=== PATIENT | female | born 1970 | race Caucasian/White ===

== ENCOUNTER 2016-11-16 22:19 | Observation (INO) | payer OTHER ==
[2016-11-16] MEDS ORDERED: LORazepam 2 MG/ML SYRINGE IV STA (22:49)
[2016-11-16] MEDS ORDERED: ASPIRIN 81 MG CHEW PO STA (22:50)
[2016-11-16] MEDS ORDERED: NITROGLYCERIN OINT 1 INCH/GM PACKET TOPICAL STA (22:50)
--- NOTE | 2016-11-16 22:53 | ED ---
General Adult HPI - General Chief complaint: Arrhythmia/Palpitations Stated complaint: Chest Pain Time Seen by Provider: 11/16/16 22:25 Source: patient, family, RN notes reviewed Mode of arrival: ambulatory Limitations: no limitations - History of Present Illness Initial comments: this is a 46-year-old female presents emergency Department complaining of chest discomfort on and off for the last 3 days patient states that time she's had chest heaviness at other time she's had shortness of breath. Patient also states she's had some left-sided jaw pain right-sided neck pain as well as breaking out in a cold sweat throughout the last 3 days. Patient states he symptoms do not necessarily coincide with each other. Patient states they just seem to occur randomly. Patient denies any recent fever chills or cough. Patient states she just came home from [place] one week ago and in that timeframe her has had a heart attack in a stent placed so she is under quite a bit of stress. Patient denies any abdominal pain patient denies nausea vomiting diarrhea. Patient denies any shortness of breath or chest pain currently. Patient denies any headache patient denies numbness weakness patient states she has had anxiety attacks in the past but none of which seem to be similar to this. - Related Data Home Medications Medication Instructions Recorded Confirmed No Known Home Medications [No 08/05/14 11/16/16 Known Home Medications] Allergies Allergy/AdvReac Type Severity Reaction Status Date / Time No Known Allergies Allergy Verified 11/16/16 22:25 Review of Systems ROS Statement: Those systems with pertinent positive or pertinent negative responses have been documented in the HPI. ROS Other: All systems not noted in ROS Statement are negative. Past Medical History Past Medical History: No Reported History History of Any Multi-Drug Resistant Organisms: None Reported Past Surgical History: No Surgical Hx Reported Past Psychological History: No Psychological Hx Reported Smoking Status: Never smoker Past Alcohol Use History: Rare Past Drug Use History: None Reported General Exam - General Exam Comments Initial Comments: GENERAL: Patient is well-developed and well-nourished. Patient is nontoxic and well- hydrated and is in no acute distress. ENT: Neck is soft and supple. No significant lymphadenopathy is noted. Oropharynx is clear. Moist mucous membranes. Neck has full range of motion without eliciting any pain. EYES: The sclera were anicteric and conjunctiva were pink and moist. Extraocular movements were intact and pupils were equal round and reactive to light. Eyelids were unremarkable. PULMONARY: Unlabored respirations. Good breath sounds bilaterally. No audible rales rhonchi or wheezing was noted. CARDIOVASCULAR: There is a regular rate and rhythm without any murmurs gallops or rubs. ABDOMEN: Soft and nontender with normal bowel sounds. No palpable organomegaly was noted. There is no palpable pulsatile mass. SKIN: Skin is clear with no lesions or rashes and otherwise unremarkable. NEUROLOGIC: Patient is alert and oriented x3. Cranial nerves II through XII are grossly intact. Motor and sensory are also intact. Normal speech, volume and content. Symmetrical smile. MUSCULOSKELETAL: Normal extremities with adequate strength and full range of motion. No lower extremity swelling or edema. No calf tenderness. LYMPHATICS: No significant lymphadenopathy is noted PSYCHIATRIC: Normal psychiatric evaluation. Normal interpersonal interactions appears functionally intact in deals appropriately with others. No signs of depression. Mild anxiety. Limitations: no limitations Course Vital Signs 11/16/16 11/16/16 11/16/16 22:23 23:08 23:54 Temperature 98.3 F Pulse Rate 79 73 80 Respiratory 18 16 18 Rate Blood Pressure 180/81 125/71 125/71 O2 Sat by Pulse 100 99 94 L Oximetry Medical Decision Making - Medical Decision Making EKG shows normal sinus rhythm at 66 bpm MT interval 146 dresses 92 QT interval 410 QTC is 429. Patient's EKG shows no ST segment elevation or depression or T- wave abdomen is noted. Patient's chest x-ray shows no acute abnormality. Patient's clinical symptoms the patient experienced indicated that this was an unstable angina/started the patient on heparin. Admitted the patient I spoke with Dr. Goldberg he agreed to accept the admission admitted the patient I wrote admitting orders and consult cardiology continue the Nitropaste aspirin and heparin on the floor. - Lab Data Result diagrams: 11/16/16 23:20 11/16/16 23:20 Lab Results 11/16/16 11/16/16 11/16/16 Range/Units 23:20 23:20 23:20 WBC 6.9 (3.8-10.6) k/uL RBC 4.34 (3.80-5.40) m/uL Hgb 13.7 (11.4-16.0) gm/dL Hct 38.6 (34.0-46.0) % MCV 88.9 (80.0-100.0) fL MCH 31.7 (25.0-35.0) pg MCHC 35.6 (31.0-37.0) g/dL RDW 12.5 (11.5-15.5) % Plt Count 177 (150-450) k/uL Neutrophils % 61 % Lymphocytes % 32 % Monocytes % 3 % Eosinophils % 2 % Basophils % 0 % Neutrophils # 4.2 (1.3-7.7) k/uL Lymphocytes # 2.2 (1.0-4.8) k/uL Monocytes # 0.2 (0-1.0) k/uL Eosinophils # 0.1 (0-0.7) k/uL Basophils # 0.0 (0-0.2) k/uL PT 11.1 (9.0-12.0) sec INR 1.1 (<1.1) APTT 26.6 (22.0-30.0) sec D-Dimer <0.17 (<0.60) mg/L FEU Sodium 141 (137-145) mmol/L Potassium 4.0 (3.5-5.1) mmol/L Chloride 103 (98-107) mmol/L Carbon Dioxide 27 (22-30) mmol/L Anion Gap 11 mmol/L BUN 18 H (7-17) mg/dL Creatinine 0.70 (0.52-1.04) mg/dL Est GFR (MDRD) Af Amer >60 (>60 ml/min/1.73 sqM) Est GFR (MDRD) Non-Af >60 (>60 ml/min/1.73 sqM) Glucose 100 H (74-99) mg/dL Calcium 9.7 (8.4-10.2) mg/dL Magnesium 2.0 (1.6-2.3) mg/dL Total Bilirubin 0.5 (0.2-1.3) mg/dL AST 21 (14-36) U/L ALT 33 (9-52) U/L Alkaline Phosphatase 65 (38-126) U/L Total Creatine Kinase (30-135) U/L Total Protein 7.4 (6.3-8.2) g/dL Albumin 4.5 (3.5-5.0) g/dL 11/16/16 Range/Units 23:20 WBC (3.8-10.6) k/uL RBC (3.80-5.40) m/uL Hgb (11.4-16.0) gm/dL Hct (34.0-46.0) % MCV (80.0-100.0) fL MCH (25.0-35.0) pg MCHC (31.0-37.0) g/dL RDW (11.5-15.5) % Plt Count (150-450) k/uL Neutrophils % % Lymphocytes % % Monocytes % % Eosinophils % % Basophils % % Neutrophils # (1.3-7.7) k/uL Lymphocytes # (1.0-4.8) k/uL Monocytes # (0-1.0) k/uL Eosinophils # (0-0.7) k/uL Basophils # (0-0.2) k/uL PT (9.0-12.0) sec INR (<1.1) APTT (22.0-30.0) sec D-Dimer (<0.60) mg/L FEU Sodium (137-145) mmol/L Potassium (3.5-5.1) mmol/L Chloride (98-107) mmol/L Carbon Dioxide (22-30) mmol/L Anion Gap mmol/L BUN (7-17) mg/dL Creatinine (0.52-1.04) mg/dL Est GFR (MDRD) Af Amer (>60 ml/min/1.73 sqM) Est GFR (MDRD) Non-Af (>60 ml/min/1.73 sqM) Glucose (74-99) mg/dL Calcium (8.4-10.2) mg/dL Magnesium (1.6-2.3) mg/dL Total Bilirubin (0.2-1.3) mg/dL AST (14-36) U/L ALT (9-52) U/L Alkaline Phosphatase (38-126) U/L Total Creatine Kinase 49 (30-135) U/L Total Protein (6.3-8.2) g/dL Albumin (3.5-5.0) g/dL Critical Care Time Critical Care Time: Yes Total Critical Care Time: 35 Disposition Clinical Impression: Unstable angina Disposition: ADMITTED IP TO THIS [facility] Time of Disposition: 00:25
[2016-11-16 23:39] LABS: Basophils % (A) 0 %; CH 32.4; CHCM 36.6; Eosinophils # (A) 0.1 k/uL (0-0.7); Eosinophils % (A) 2 %; HCT 38.6 % (34.0-46.0); HDW 2.94; HGB 13.7 gm/dL (11.4-16.0); Luc # (Auto) 0.15; Luc % (Auto) 2; Lymphocytes # (A) 2.2 k/uL (1.0-4.8); Lymphocytes % (A) 32 %; MCH 31.7 pg (25.0-35.0); MCHC 35.6 g/dL (31.0-37.0); MCV 88.9 fL (80.0-100.0); Mean Platelet Volume 7.6; Monocytes # (A) 0.2 k/uL (0-1.0); Monocytes % (A) 3 %; Neutrophils # (A) 4.2 k/uL (1.3-7.7); Neutrophils % (A) 61 %; RBC 4.34 m/uL (3.80-5.40); RDW 12.5 % (11.5-15.5); WBC 6.9 k/uL (3.8-10.6); WBC (Perox) 6.88
[2016-11-16 23:49] LABS: ALT 33 U/L (9-52); AST 21 U/L (14-36); Alkaline Phosphatase 65 U/L (38-126); Anion Gap 11 mmol/L; Blood Urea Nitrogen 18 mg/dL (7-17); Calcium 9.7 mg/dL (8.4-10.2); Carbon Dioxide 27 mmol/L (22-30); Chloride 103 mmol/L (98-107); Glucose 100 mg/dL (74-99); Non-African American GFR(MDRD) >60 (>60 ml/min/1.73 sqM); Sodium 141 mmol/L (137-145); Total Bilirubin 0.5 mg/dL (0.2-1.3); Total Protein 7.4 g/dL (6.3-8.2)
[2016-11-16 23:53] LABS: INR 1.1 (<1.1); Partial Thromboplastin Time 26.6 sec (22.0-30.0); Prothrombin Time 11.1 sec (9.0-12.0)
[2016-11-17 00:03] LABS: Creatine Kinase 49 U/L (30-135)
[2016-11-17 00:14] LABS: Creatine Kinase MB <0.2 ng/mL (0.0-2.4); Troponin I <0.012 ng/mL (0.000-0.034)
--- NOTE | 2016-11-17 00:15 | XR ---
EXAM: XR Chest, 2 Views. CLINICAL HISTORY: Reason: Chest Pain TECHNIQUE: Frontal and lateral views of the chest. COMPARISON: 08/05/14 FINDINGS: Lungs: Unremarkable. No consolidation. Pleural space: Unremarkable. No pneumothorax. Heart: Unremarkable. No cardiomegaly. Mediastinum: Unremarkable. Bones/joints: Unremarkable. IMPRESSION: No acute findings or substantial change
[2016-11-17] MEDS ORDERED: HEPARIN SODIUM,PORCINE 5,000 UNIT/ML 1 ML VIAL IV ONE (00:23)
[2016-11-17] MEDS ORDERED: HEPARIN SODIUM,PORCINE/D5W PMX 25,000 UNIT in DEXTROSE/WATER 1 500ML.BAG IV SCH (00:30)
[2016-11-17] MEDS ORDERED: MORPHINE SULFATE 2 MG/ML SYRINGE IVP PRN (01:55)
[2016-11-17] MEDS ORDERED: NITROGLYCERIN SL TABS 0.4 MG TAB SUBLINGUAL PRN (01:55)
[2016-11-17] MEDS ORDERED: SODIUM CHLORIDE 0.9% 1,000 ML IV SCH (02:00)
[2016-11-17 03:00] VITALS: BMI 27.1
[2016-11-17 07:11] LABS: Creatine Kinase 48 U/L (30-135)
[2016-11-17 07:24] LABS: Creatine Kinase MB <0.2 ng/mL (0.0-2.4); Troponin I <0.012 ng/mL (0.000-0.034)
[2016-11-17 08:01] VITALS: RESP 16; TEMP 97.8
--- NOTE | 2016-11-17 08:26 | P.CRDCN ---
History of Present Illness Consult reason: chest pain History of present illness: 46-year-old female who presented to the hospital with recurrent left-sided chest discomfort as well as discomfort in the left arm The patient has been complaining of a fluttering sensation in the chest. Subsequently she started developing discomfort in the left side of the chest and felt tight and in the left arm she may also felt some discomfort in the nape of the neck She has been short of breath with activities of daily living including carrying clothes to the washing machine No loss of consciousness but she does get dizzy off and on Review of systems: No fever chills or rigors, no cough, phlegm or expectoration , no nausea, vomiting or diarrhea, no hematuria, dysuria, no musculoskeletal complaints, no strokes or seizures, no skin lesions. No medications at this time NO KNOWN DRUG ALLERGIES Never smoker No alcohol use Past history none. She denies any diabetes hypertension she does not know her lipid panel Family history: Her father had his heart attack in his 60s and he also has a defibrillator because he had a cardiac arrest On examination Her blood pressures 105/59 mmHg pulse rate in the 80s afebrile 97.8F No JVD no thyromegaly no carotid bruits Heart sounds S1 and S2 are normal no murmurs no gallops Breath sounds are normal no rhonchi no crackles Extremities are warm no edema Abdomen is soft nontender 12-lead ECG shows sinus rhythm with early repolarization abnormality inferior laterally no other ST segment abnormalities. Subsequent twelve-lead ECG shows no significant changes Labs are reviewed. Hemoglobin is normal d-dimer is normal electrolytes are normal kidney function normal, liver function normal to cardiac enzymes are completely normal, third one is pending Impression Recurrent chest discomfort radiating to the left arm Recurrent fluttering and palpitations in the chest Recurrent dizzy spells Shortness of breath on exertion No current evidence for an acute myocardial infarction Lipid panel pending Family history of CAD and cardiac arrest Suggest Stop Nitropaste, stop IV heparin. Ambulate in the hallways. If she has any chest discomfort a stat twelve-lead ECG and the nurse will call me At 12 noon, troponins be drawn and if this is normal she should be able to go home today May go home thereafter and follow-up with me as an outpatient for outpatient workup Past Medical History Past Medical History: No Reported History Additional Past Medical History / Comment(s): psoriasis History of Any Multi-Drug Resistant Organisms: None Reported Past Surgical History: No Surgical Hx Reported Additional Past Anesthesia/Blood Transfusion Reaction / Comment(s): no prev anesthesia Past Psychological History: Anxiety Smoking Status: Never smoker Past Alcohol Use History: Rare Past Drug Use History: None Reported - Past Family History Father Additional Family Medical History / Comment(s): cardiac arrest with open heart and valve replaced at 65. still living currently Medications and Allergies Home Medications Medication Instructions Recorded Confirmed Type No Known Home Medications [No 08/05/14 11/16/16 History Known Home Medications] Allergies Allergy/AdvReac Type Severity Reaction Status Date / Time No Known Allergies Allergy Verified 11/16/16 22:25 Physical Exam Vitals: Vital Signs Temp Pulse Pulse Pulse Resp BP BP 11/17/16 08:00 97.8 F 80 16 105/59 11/17/16 03:41 97.7 F 65 18 116/62 11/17/16 03:13 74 16 11/17/16 02:05 77 16 108/57 Pulse Ox 11/17/16 08:00 95 11/17/16 03:41 96 11/17/16 03:13 11/17/16 02:05 92 L Intake and Output 11/16/16 11/17/16 11/17/16 22:59 06:59 14:59 Other: Voiding Method Toilet # Voids 2 Weight 67.132 kg Results 11/16/16 23:20 11/16/16 23:20 Cardiac Enzymes 11/17/16 Range/Units 06:16 CK-MB (CK-2) <0.2 (0.0-2.4) ng/mL Troponin I <0.012 (0.000-0.034) ng/mL Coagulation 11/17/16 Range/Units 06:16 APTT 64.4 H (22.0-30.0) sec Current Medications Generic Name Dose Route Start Last Admin Trade Name Freq PRN Reason Stop Dose Admin Aspirin 325 mg 11/18/16 09:00 Aspirin PO DAILY YOBANI Heparin Sodium/Dextrose 25,000 500 mls @ 16.11 mls/hr 11/17/16 00:30 00:31 unit/ IV Solution IV 12 units/kg/hr .Q24H YOBANI 16.11 mls/hr Protocol Administration 12 UNITS/KG/HR Sodium Chloride 1,000 mls @ 100 mls/hr 11/17/16 02:00 Saline 0.9% IV .Q10H YOBANI Morphine Sulfate 2 mg 11/17/16 01:55 Morphine Sulfate (Inj) IVP Q5M PRN Chest Pain Nitroglycerin 0.4 mg 11/17/16 01:55 Nitrostat SUBLINGUAL Q5M PRN Chest Pain Intake and Output 11/16/16 11/17/16 11/17/16 22:59 06:59 14:59 Other: Voiding Method Toilet # Voids 2 Weight 67.132 kg
[2016-11-17 11:41] LABS: Creatine Kinase 46 U/L (30-135)
[2016-11-17 11:55] LABS: Creatine Kinase MB <0.2 ng/mL (0.0-2.4); Troponin I <0.012 ng/mL (0.000-0.034)
[2016-11-17 12:21] VITALS: BP 107/55; PULSE 74
--- NOTE | 2016-11-17 12:48 | HP ---
DATE OF ADMISSION: 11/17/2016 CHIEF COMPLAINT: Chest pain. HISTORY OF PRESENT ILLNESS: This is a 46-year-old female who presented to the hospital with new onset chest pain. The patient said that she was on vacation where she had multiple neck pain and shoulder pain, but this morning she felt some chest tightness. She said that it is discomfort. No radiation to the left shoulder. Denied vomiting, but admitted nausea. Patient said that she had a father who of cardiac arrest at age 60, had stent this year. She felt overwhelmed and presented to the emergency department. Initial work-up with troponin and EKG showed normal findings but patient was started on heparin drip per ER physician and placed in observation for cardiac evaluation. Patient currently seems to be in no pain. Denying chest pain, shortness breath, nausea, vomiting, abdominal pain, dizziness, lightheadedness, or blurry vision. Thinks that is all related to missing her appointment with the chiropractor as she has been addicted to that. REVIEW OF SYSTEMS: All 14 systems reviewed and negative except as above. ALLERGIES: No known drug allergies. HOME MEDICATIONS: None. PAST MEDICAL AND SURGICAL HISTORY: Chronic back pain and neck pain and shoulder pain. SOCIAL HISTORY: No denied tobacco, alcohol or drug abuse. FAMILY HISTORY: Father with the cardiac arrest age 60. PHYSICAL EXAMINATION: VITAL SIGNS: Reviewed and stable. GENERAL: Stated age. No acute distress. HEENT: Atraumatic, normocephalic. PERRLA. LUNGS: Clear to auscultation bilaterally. HEART: Normal S1, S2. No murmur, rubs, or gallops. No lower extremity edema. ABDOMEN: Soft, no tenderness. Positive bowel sounds in all 4 quadrants. SKIN: No rash. PSYCH: Alert, and oriented x3. NEURO: Cranial nerves 2 through 12 are intact. Normal deep tendon reflexes and sensation. EKG showed normal sinus rhythm without acute changes. CBC normal. PT, PTT, INR normal. Troponin x2 normal. Chemistries showed normal findings entirely, LDL was 127, cholesterol is 204 and triglyceride 89, HDL of 59. ASSESSMENT AND PLAN: 1. Chest pain, noncardiac related. Patient was evaluated by Dr. Urias and he would like her to follow up with him in the office for stress echo on outpatient basis. The patient is happy with this plan and would like to go home today. The patient with no obvious symptoms. 2. Anxiety. To follow up outpatient with her primary care physician. 3. We will discharge patient today.
[2016-11-18] MEDS ORDERED: ASPIRIN 325 MG TAB PO SCH (09:00)
== END 2016-11-17 12:15 | disposition home or self-care (01) ==
LOC: EC 22:19 → 3SUR 11-17 01:58
PROVIDERS: ADMIT Internal Medicine; ATTEND Internal Medicine
DX: R07.89 Other chest pain (principal); Z82.41 Family history of sudden cardiac death; Z82.49 Family history of ischemic heart disease and other diseases of the circulatory system; R06.02 Shortness of breath
CPT/HCPCS: 99291 ×2; 96365 ×2; 96366 ×2; 96375 ×2; 96376 ×2; 36415; 93005; 85379; 84439; 80061; 80053; 84443; 82550 ×2; 82553 ×2; 83735; 84484 ×2; 85025; 85610; 85730 ×2; 71020; G0378; J2060; J1644 ×2

== ENCOUNTER 2021-06-30 21:07 | Emergency (ER) | payer BC ==
[2021-06-30 22:13] VITALS: RESP 18
[2021-06-30] MEDS ORDERED: SODIUM CHLORIDE 0.9% 1,000 ML IV STA (23:02)
--- NOTE | 2021-06-30 23:06 | ED ---
Chest Pain HPI - General Chief Complaint: Chest Pain Stated Complaint: Left arm pain, Nausea Time Seen by Provider: 06/30/21 22:28 Source: patient, RN notes reviewed, old records reviewed Mode of arrival: ambulatory Limitations: no limitations - History of Present Illness Initial Comments: This is a 42-year-old female presents today for evaluation. Patient has history of psychiatric and anxiety. Not homicidal or suicidal with no drug or alcohol abuse. States few days ago she had some jaw pain occasional chest pain with history of thyroid and gallbladder issues. Gallbladder thyroid issues are resolved patient has mild concern for heart secondary to the jaw pain and chest pain. No fevers no cough or congestion no travel history MD Complaint: chest pain -: days(s) Onset: during rest Pain Location: left chest Pain Radiation: LUE, jaw/teeth Severity: moderate Severity scale (1-10): 4 Quality: aching, heaviness Consistency: intermittent Improves With: nothing Worsens With: nothing Anginal Symptoms: sense of impending doom Other Symptoms: palpitations Treatments Prior to Arrival: none - Related Data Home Medications Medication Instructions Recorded Confirmed No Known Home Medications 08/05/14 11/17/16 Allergies Allergy/AdvReac Type Severity Reaction Status Date / Time No Known Allergies Allergy Verified 06/30/21 22:13 Review of Systems ROS Statement: Those systems with pertinent positive or pertinent negative responses have been documented in the HPI. ROS Other: All systems not noted in ROS Statement are negative. EKG Findings - EKG Comments: EKG Findings:: EKG is normal sinus rhythm 74 VA 142 QRS 84 QTc 437 Past Medical History Past Medical History: No Reported History Additional Past Medical History / Comment(s): psoriasis History of Any Multi-Drug Resistant Organisms: None Reported Past Surgical History: No Surgical Hx Reported Additional Past Anesthesia/Blood Transfusion Reaction / Comment(s): no prev anesthesia Past Psychological History: Anxiety Smoking Status: Never smoker Past Alcohol Use History: Rare Past Drug Use History: None Reported - Past Family History Father Additional Family Medical History / Comment(s): cardiac arrest with open heart and valve replaced at 65. still living currently General Exam Limitations: no limitations General appearance: alert, in no apparent distress Head exam: Present: atraumatic, normocephalic, normal inspection Eye exam: Present: normal appearance, PERRL, EOMI. Absent: scleral icterus, conjunctival injection, periorbital swelling ENT exam: Present: normal exam, mucous membranes moist Neck exam: Present: normal inspection. Absent: tenderness, meningismus, lymphadenopathy Respiratory exam: Present: normal lung sounds bilaterally. Absent: respiratory distress, wheezes, rales, rhonchi, stridor Cardiovascular Exam: Present: regular rate, normal rhythm, normal heart sounds. Absent: systolic murmur, diastolic murmur, rubs, gallop, clicks GI/Abdominal exam: Present: soft, normal bowel sounds. Absent: distended, tenderness, guarding, rebound, rigid Extremities exam: Present: normal inspection, full ROM, normal capillary refill. Absent: tenderness, pedal edema, joint swelling, calf tenderness Back exam: Present: normal inspection Neurological exam: Present: alert, oriented X3, CN II-XII intact Psychiatric exam: Present: normal affect, normal mood Skin exam: Present: warm, dry, intact, normal color. Absent: rash Course Vital Signs 06/30/21 07/01/21 22:09 02:14 Temperature 97.9 F 98.0 F Pulse Rate 76 79 Respiratory 18 18 Rate Blood Pressure 191/98 137/72 O2 Sat by Pulse 99 97 Oximetry - Reevaluation(s) Reevaluation #1: 07/01/21 04:48 Medical record is reviewed Reevaluation #2: 07/01/21 04:48 Patient symptoms are improved Reevaluation #3: 07/01/21 04:48 Patient informed results and questions answered Chest Pain MDM - MDM 50 female to the emergency department for evaluation of pain concern for heart which is normal here. Also was concerned for recurrent thyroid or gallbladder disease. All testing is negative patient can be discharged home Disposition Clinical Impression: Chest pain, Arm pain, Jaw pain Disposition: HOME SELF-CARE Condition: Good Instructions (If sedation given, give patient instructions): Chest Pain (ED), Arm Pain (ED) Is patient prescribed a controlled substance at d/c from ED?: No Referrals: Vesna Tracey DO [Primary Care Provider] - 1-2 days
[2021-06-30 23:33] LABS: Basophils % (A) 1 %; Eosinophils # (A) 0.1 k/uL (0-0.7); Eosinophils % (A) 2 %; HCT 38.1 % (34.0-46.0); HGB 13.7 gm/dL (11.4-16.0); Hyperchromasia Slight; Lymphocytes # (A) 2.2 k/uL (1.0-4.8); Lymphocytes % (A) 33 %; MCH 30.8 pg (25.0-35.0); MCV 85.6 fL (80.0-100.0); Mean Platelet Volume 8.4; Monocytes # (A) 0.3 k/uL (0-1.0); Monocytes % (A) 4 %; Neutrophils # (A) 3.9 k/uL (1.3-7.7); Neutrophils % (A) 58 %; Platelet Count 164 k/uL (150-450); RBC 4.45 m/uL (3.80-5.40); RDW 12.5 % (11.5-15.5); WBC 6.7 k/uL (3.8-10.6)
[2021-06-30 23:57] LABS: INR 0.9 (<1.2); Potassium 3.6 mmol/L (3.5-5.1); Prothrombin Time 9.8 sec (9.0-12.0)
[2021-06-30 23:59] LABS: ALT 24 U/L (4-34); AST 28 U/L (14-36); African American GFR (CKD) >90 (>60 ml/min/1.73 sqM); Albumin 4.7 g/dL (3.5-5.0); Alkaline Phosphatase 72 U/L (38-126); Anion Gap 10 mmol/L; Blood Urea Nitrogen 18 mg/dL (7-17); Calcium 9.9 mg/dL (8.4-10.2); Carbon Dioxide 24 mmol/L (22-30); Chloride 105 mmol/L (98-107); Glucose 118 mg/dL (74-99); Magnesium 1.9 mg/dL (1.6-2.3); Non-African American GFR(CKD) >90 (>60 ml/min/1.73 sqM); Phosphorus 3.9 mg/dL (2.5-4.5); Sodium 139 mmol/L (137-145); Total Bilirubin 0.4 mg/dL (0.2-1.3); Total Protein 7.6 g/dL (6.3-8.2)
[2021-07-01 00:28] LABS: Partial Thromboplastin Time 21.8 sec (22.0-30.0)
[2021-07-01 02:15] VITALS: BP 137/72; PULSE 79; TEMP 98
== END 2021-07-01 02:15 | disposition home or self-care (01) ==
LOC: EC 21:07
DX: R07.89 Other chest pain (principal); R68.84 Jaw pain; M79.602 Pain in left arm
CPT/HCPCS: 36415; 80053; 83735; 83880; 84100; 84484; 85025; 85610; 85730; 93005; 99285

== ENCOUNTER → 2023-12-04 | Outpatient (CLI) | payer BC ==
--- NOTE | 2023-12-04 15:29 | US ---
EXAMINATION TYPE: US carotid duplex BILAT DATE OF EXAM: 12/04/2023 COMPARISON: NONE CLINICAL INDICATION: Female, 53 years old with history of R42 DIZZINESS,GIDDINESS; Pt states dizzine ss TECHNIQUE: Carotid duplex ultrasound examination. Indirect Doppler criteria was utilized. FINDINGS: EXAM MEASUREMENTS: RIGHT: Peak Systolic Velocity (PSV) cm/sec ----- Right CCA: 77.9 ----- Right ICA: 95.6 ----- Right ECA: 103.2 ICA/CCA ratio: 1.2 RIGHT: End Diastole cm/sec ----- Right CCA: 29.6 ----- Right ICA: 38.7 ----- Right ECA: 19.2 LEFT: Peak Systolic Velocity (PSV) cm/sec ----- Left CCA: 91.8 ----- Left ICA: 96.9 ----- Left ECA: 96.9 ICA/CCA ratio: 1.1 LEFT: End Diastole cm/sec ----- Left CCA: 29.6 ----- Left ICA: 42.6 ----- Left ECA: 20.6 VERTEBRALS (direction of flow): Right Vertebral: Antegrade Left Vertebral: Antegrade Rhythm: Normal OPERATIONS WELDER NOTES: No significant stenosis seen IMPRESSION: 1. No stenosis based on color and grayscale imaging. There is no plaque formation in the carotid bifu rcations. 2. Based on peak systolic velocities and ratios, no hemodynamically significant stenosis. Criteria for Assigning % of Stenosis / Diameter reduction (Estimation based on the indirect measurements of the internal carotid artery velocities (ICA PSV). 1. Normal (no stenosis)=ICA PSV < 125 cm/s: ratio < 2.0: ICA EDV<40 cm/s. 2. Less than 50% stenosis=ICA PSV < 125 cm/s: ratio < 2.0: ICA EDV<40 cm/s. 3. 50 to 69% stenosis=ICA PSV of 125 to 230 cm/s: ration 2.0 ? 4.0: ICA EDV 40-100 cm/s. 4. Greater than 70% stenosis to near occlusion= ICA PSV > 230 cm/s: ratio > 4.0: ICA EDV > 100 cm/s. 5. Near occlusion= ICA PSV velocities may be low or undetectable: variable ratio and ICA EDV. 6. Total occlusion=unable to detect flow.
--- NOTE | 2023-12-05 10:51 | MM ---
Reason for Exam: Screening (asymptomatic). Last mammogram was performed 16 year(s) and 6 month(s) ago. Patient History: Menarche at age 15. First Full-Term at age 27. Last menstrual period: Risk Values: Marylu 5 year model risk: 1.1%. NCI Lifetime model risk: 9.7%. Prior Study Comparison: 07/02/2007 Bilateral Diagnostic Mammogram, [facility]. Tissue Density: There are scattered areas of fibroglandular density. Findings: Analyzed By CAD. Right breast: There is no suspicious group of microcalcifications or new suspicious mass. Left breast: There is no suspicious group of microcalcifications or new suspicious mass. Overall Assessment: Negative, BI-RAD 1 Management: Screening Mammogram of both breasts in [address] [facility] will attempt to contact patient to return for supplemental views and ultrasound if indicated. Patient should continue monthly self-breast exams. A clinical breast exam by your physician is recommended on an annual basis. This exam should not preclude additional follow-up of suspicious palpable abnormalities. Note on Marylu scores and lifetime risk: 1. A Marylu score greater than 3% is considered moderate risk. If this is the case, consider specialist referral to assess eligibility for a risk reducing agent. 2. If overall lifetime risk for the development of breast cancer is 20% or higher, the patient may qualify for future screening with alternating mammogram and breast MRI. Electronically signed and approved by: Kyler Castro DO
== END | disposition home or self-care (01) ==
LOC: RADMAMWWP 11:48
PROVIDERS: ATTEND Family Medicine
DX: Z12.31 Encounter for screening mammogram for malignant neoplasm of breast (principal); R42 Dizziness and giddiness
CPT/HCPCS: 77063; 77067; 93880